=== PATIENT | male | born 1960 | race Caucasian/White ===

== ENCOUNTER 2017-08-15 15:37 | Inpatient (IN) | payer OTHER ==
[~2017-08-15] VITALS: Ht 180.3 cm; Wt 120.5 kg
[~2017-08-15 15:37] MED LIST: AMBI10TA PO; CART240C4 PO; CYCL-36 PO; DYAZ37.52 PO; FURO20TA PO; LISI-363 PO; LORA10TA PO; LORTA5 PO; LOSA100T PO; MELO15TA2 PO; METO100T PO; PERC5TAB12 PO; RIVA20 PO; SIMV20 PO; TAB-TAB PO; TIMO0.5S4 EACH EYE
--- NOTE | 2017-08-15 15:47 | PD ---
HPI Chief Complaint: headache Time Seen by Provider: 15:47 Travel History International Travel<30 days: No Contact w/Intl Traveler<30days: No Traveled to known affect area: No History of Present Illness HPI 57-year-old male came to the emergency room with history of headache and neck pain that started last night. He was brought in by EMS. His blood pressure as per EMS stated more than 200 and upon arrival was 225 systolic. Patient describes the pain bitemporal going to the back of his head and into the neck. No history of fever or chills. No history of photophobia. No history of neck stiffness. He seems uncomfortable. No history of head trauma or syncopal episode. Patient is on medications for hypertension and has been compliant with them as per him. No history of chest pain or blurred vision. PFSH Past Medical History Narrative Medical List of his past medical, surgical, social and family history was reviewed from the nursing note. Hx Anticoagulant Therapy: Yes Arthritis: Yes Asthma: Yes ( A CHILD) Atrial Fibrillation: Yes Blood Disorders: No Heart Rhythm Problems: Yes (atrial fibrillation) Cancer: No Cardiac Catheterization: Yes Cardiovascular Problems: Yes (A FIB, OPEN HEART, HTN, PACEMAKER, MAZE ) High Cholesterol: Yes Chest Pain: No Diabetes: No Diminished Hearing: No Endocrine: No Gastrointestinal Disorders: Yes GERD: Yes Glaucoma: No Genitourinary: No Headaches: Yes (sinus) Hepatitis: No Hiatal Hernia: No Hypertension: Yes Immune Disorder: No Musculoskeletal: Yes Neurologic: Yes Psychiatric: No Reproductive: No Respiratory: Yes (SLEEP APNEA) Integumentary: Yes Immunizations Current: Yes Pancreatitis: Yes Sleep Apnea: Yes Thyroid Disease: No Past Surgical History Abdominal Surgery: Yes (CASS) Body Medical Devices: PACEMAKER Cardiac Surgery: Yes (CABG,VALVE REPAIR,PACEMAKER,ABLATION) Cholecystectomy: Yes Coronary Artery Bypass Graft: Yes (NOV 2008) Pacemaker: Yes (BIOTRONIK ([phone]); CYCLOS DR-REF #[id number]; SN #[id number]) Thoracic Surgery: Yes (PM) Valve Replacement: Yes (REPAIR 11/2007) Other Surgery: Yes (carpal tunnel) Social History Alcohol Use: Yes (occ) Tobacco Use: No Substance Use: No Allergies-Medications (Allergen,Severity, Reaction): Coded Allergies: No Known Allergies (Verified , 06/20/16) Comments No known drug allergies. Reported Meds & Prescriptions Reported Meds & Active Scripts Active Reported Ambien (Zolpidem Tartrate) 10 Mg Tab 10 Mg PO HS PRN Triamterene-Hydrochlorothiazide 37.5-25 Mg Cap 1 Cap PO DAILY Simvastatin 20 Mg Tab 20 Mg PO DAILY Xarelto (Rivaroxaban) 20 Mg Tab 20 Mg PO DAILY Metoprolol Tartrate 100 Mg Tab 100 Mg PO BID Multiple Vitamin 1 Tab 1 Tab PO DAILY Losartan (Losartan Potassium) 100 Mg Tab 100 Mg PO DAILY Claritin (Loratadine) 10 Mg Cap 10 Mg PO DAILY Lisinopril 20 Mg Tab 20 Mg PO BID Lasix (Furosemide) 20 Mg Tab 20 Mg PO DAILY Cartia Xt (Diltiazem ER 24 HR) 120 Mg Caper 240 Mg PO DAILY Flexeril (Cyclobenzaprine HCl) 10 Mg Tab 10 Mg PO TID Narrative Medication List of his home medications reviewed from the nursing note. Review of Systems Except as stated in HPI: all other systems reviewed are Neg Physical Exam Narrative GENERAL: Awake, alert, obese, moderate distress SKIN: Focused skin assessment warm/dry. HEAD: Atraumatic. Normocephalic. EYES: Pupils equal and round. No scleral icterus. No injection or drainage. ENT: No nasal bleeding or discharge. Mucous membranes pink and moist. NECK: Trachea midline. No JVD. Neck is supple, no signs of meningismus CARDIOVASCULAR: Regular rate and rhythm. No murmur appreciated. RESPIRATORY: No accessory muscle use. Clear to auscultation. Breath sounds equal bilaterally. GASTROINTESTINAL: Abdomen soft, non-tender, nondistended. Hepatic and splenic margins not palpable. MUSCULOSKELETAL: No obvious deformities. No clubbing. No cyanosis. No edema. NEUROLOGICAL: Awake and alert. No obvious cranial nerve deficits. Motor grossly within normal limits. Normal speech. PSYCHIATRIC: Appropriate mood and affect; insight and judgment normal. Data Data Last Documented VS Orders Orders Electrocardiogram (08/15/17 15:55) Basic Metabolic Panel (Bmp) (08/15/17 15:55) Ckmb (Isoenzyme) Profile (08/15/17 15:55) Complete Blood Count With Diff (08/15/17 15:55) Magnesium (Mg) (08/15/17 15:55) Prothrombin Time / Inr (Pt) (08/15/17 15:55) Act Partial Throm Time (Ptt) (08/15/17 15:55) Troponin I (08/15/17 15:55) Chest, Single Ap (08/15/17 15:55) Ecg Monitoring (08/15/17 15:55) Bilateral Bp Monitoring (08/15/17 15:55) Iv Access Insert/Monitor (08/15/17 15:55) Oximetry (08/15/17 15:55) Oxygen Administration (08/15/17 15:55) Sodium Chloride 0.9% Flush (Ns Flush) (08/15/17 16:00) Ct Brain W/O Iv Contrast(Rout) (08/15/17 ) Clonidine (Catapres) (08/15/17 16:00) Nicardipine Inj (Cardene Inj) (08/15/17 16:00) Ondansetron Inj (Zofran Inj) (08/15/17 16:00) Potassium Chloride (Kcl) (08/15/17 18:15) Admit Order (Ed Use Only) (08/15/17 18:20) Labs Laboratory Tests Test 08/15/17 16:50 White Blood Count 8.9 TH/MM3 Red Blood Count 5.34 MIL/MM3 Hemoglobin 16.6 GM/DL Hematocrit 49.2 % Mean Corpuscular Volume 92.1 FL Mean Corpuscular Hemoglobin 31.0 PG Mean Corpuscular Hemoglobin Concent 33.7 % Red Cell Distribution Width 13.7 % Platelet Count 164 TH/MM3 Mean Platelet Volume 7.6 FL Neutrophils (%) (Auto) 83.6 % Lymphocytes (%) (Auto) 9.9 % Monocytes (%) (Auto) 4.9 % Eosinophils (%) (Auto) 1.0 % Basophils (%) (Auto) 0.6 % Neutrophils # (Auto) 7.5 TH/MM3 Lymphocytes # (Auto) 0.9 TH/MM3 Monocytes # (Auto) 0.4 TH/MM3 Eosinophils # (Auto) 0.1 TH/MM3 Basophils # (Auto) 0.1 TH/MM3 CBC Comment DIFF FINAL Differential Comment Prothrombin Time 11.8 SEC Prothromb Time International Ratio 1.1 RATIO Activated Partial Thromboplast Time 30.6 SEC Blood Urea Nitrogen 18 MG/DL Creatinine 0.98 MG/DL Random Glucose 116 MG/DL Calcium Level 9.4 MG/DL Magnesium Level 2.3 MG/DL Sodium Level 136 MEQ/L Potassium Level 3.3 MEQ/L Chloride Level 99 MEQ/L Carbon Dioxide Level 31.3 MEQ/L Anion Gap 6 MEQ/L Estimat Glomerular Filtration Rate 79 ML/MIN Total Creatine Kinase 99 U/L Troponin I LESS THAN 0.02 NG/ML MDM Medical Decision Making Medical Screen Exam Complete: Yes Emergency Medical Condition: Yes Medical Record Reviewed: Yes Interpretation(s) Twelve-lead EKG was reviewed by me. Atrial paced rhythm, first-degree AV block , normal axis. Heart rate of 60 bpm. Differential Diagnosis Hypertensive emergency, intracranial bleed, hypertensive crisis Narrative Course 5:[address] scan of the head is negative for any intracranial bleed. Awaiting for blood test result. Patient was given a dose of clonidine by mouth and was started on Cardene drip. He will need to be admitted. 6:11 PM blood test results of back and within acceptable limits. Blood pressure currently is 156. He continues to be on the Cardene drip. Patient should get admitted. Awaiting for the hospitalist to call back. Critical Care Narrative Aggregate critical care time was 45 minutes. Time to perform other separately billable procedures was not included in the critical care time. My time did not include minutes spent treating any other patients simultaneously or on activities that did not directly contribute to the patient's treatment. The services I provided to this patient were to treat and/or prevent clinically significant deterioration that could result in: Hypertensive emergency, headache I provided critical care services requiring my management, as noted below: Chart data review, documentation time, medication orders and management, vital sign assessments/reviewing monitor data, ordering and reviewing lab tests, ordering and interpreting/reviewing x-rays and diagnostic studies, care of the patient and discussion of the patient with the admitting physicians. Procedures EKG Prior to Arrival: No Diagnosis Primary Impression: Hypertensive emergency Additional Impression: Headache Qualified Codes: R51 - Headache Admitting Information Admitting Physician Requests: Admit Scripts Clonidine (Catapres) 0.2 Mg Tab 0.2 MG PO Q6HR for SBP ABOVE 160, #30 TAB 0 Refills Prov: Gallo Jimenez DO 08/19/17 Valeria Cid MD Aug 15, 2017 15:47
[2017-08-15 15:53] VITALS: BP 223/105; PULSE 60; RESP 11; TEMP 97.6
[2017-08-15] MEDS ORDERED: cloNIDine HCL 0.1 MG TAB PO ONE (16:00)
[2017-08-15] MEDS ORDERED: niCARdipine INJ 25 MG in SODIUM CHLOR 0.9% 250 ML INJ 240 ML IV PRN (16:00)
[2017-08-15] MEDS ORDERED: ONDANSETRON HCL 4 MG/2 ML VIAL IV PUSH ONE (16:00)
[2017-08-15] MEDS ORDERED: SODIUM CHLORIDE 0.9% FLUSH 10 ML FLUSH IVF PRN (16:00)
--- NOTE | 2017-08-15 16:35 | RADRPT ---
EXAM DATE/TIME: 08/15/2017 15:57 [facility] COMPARISON: CHEST SINGLE AP, June 20, 2016, 20:48. INDICATIONS : Lightheaded and dizzy with a headache. MEDICAL HISTORY : Hypertension. Gastroesophageal reflux disease. Atrial fibrillation. Asthma. SURGICAL HISTORY : Pacemaker. CABG Cholecystectomy.Valve repair. Ablation. ENCOUNTER: Initial ACUITY: 1 day PAIN SCORE: 0/10 LOCATION: Bilateral chest FINDINGS: A single AP portable erect view of the chest was obtained. The study is more Midinspiratory with mild crowding of the lung vasculature. There are no confluent infiltrates or effusions. The patient is st atus post median sternotomy and there is artificial heart valve again noted. The left subclavian gaviria svenous pacer remains in place. The bony thorax is intact. CONCLUSION: Midinspiratory exam with no acute cardiopulmonary change. Marin Ryan MD on August 15, 2017 at 16:32 Board Certified Radiologist. This report was verified electronically.
[2017-08-15] MEDS ORDERED: MELO-1 PO (16:44)
[2017-08-15] MEDS ORDERED: TRIA37.53 PO (16:44)
[2017-08-15] MEDS ORDERED: AMBI10TA PO (16:44)
[2017-08-15] MEDS ORDERED: LISI-515 PO (16:44)
[2017-08-15] MEDS ORDERED: FURO1TAB62 PO (16:44)
[2017-08-15] MEDS ORDERED: CART120C PO (16:44)
[2017-08-15] MEDS ORDERED: CLAR10CA3 PO (16:44)
[2017-08-15] MEDS ORDERED: MULTTAB67 PO (16:44)
[2017-08-15] MEDS ORDERED: XARE20TA PO (16:44)
[2017-08-15] MEDS ORDERED: METO100T PO (16:44)
[2017-08-15] MEDS ORDERED: CYCL1TAB29 PO (16:44)
[2017-08-15] MEDS ORDERED: LOSA100T PO (16:44)
[2017-08-15] MEDS ORDERED: SIMV20TA PO (16:44)
--- NOTE | 2017-08-15 16:55 | RADRPT ---
EXAM DATE/TIME: 08/15/2017 16:21 [facility] COMPARISON: CT BRAIN W/O CONTRAST, June 13, 2016, 5:02. INDICATIONS : Cephalgia. RADIATION DOSE: 56.35 CTDIvol (mGy) MEDICAL HISTORY : Cardiovascular disease. Hypertension. SURGICAL HISTORY : CABG ENCOUNTER: Initial ACUITY: 1 day PAIN SCALE: 5/10 LOCATION: Bilateral cranial TECHNIQUE: Multiple contiguous axial images were obtained of the head. Using automated exposure control and adj ustment of the mA and/or kV according to patient size, radiation dose was kept as low as reasonably a chievable to obtain optimal diagnostic quality images. DICOM format image data is available electro nically for review and comparison. FINDINGS: CEREBRUM: The ventricles are normal for age. No evidence of midline shift, mass lesion, hemorrhage or acute in farction. No extra-axial fluid collections are seen. POSTERIOR FOSSA: The cerebellum and brainstem are intact. The 4th ventricle is midline. The cerebellopontine angle i s unremarkable. EXTRACRANIAL: The visualized portion of the orbits is intact. SKULL: The calvaria is intact. No evidence of skull fracture. CONCLUSION: Negative noncontrast CT Marin Ryan MD on August 15, 2017 at 16:52 Board Certified Radiologist. This report was verified electronically.
[2017-08-15 17:31] VITALS: BP 167/86; PULSE 60; RESP 15; O2SAT 95
[2017-08-15 18:00] LABS: AUTOMATED NEUTROPHIL # 7.5 TH/MM3 (1.8-7.7); BASOPHIL # 0.1 TH/MM3 (0-0.2); BASOPHIL % 0.6 % (0.0-2.0); EOSINOPHIL # 0.1 TH/MM3 (0-0.4); HEMATOCRIT 49.2 % (39.0-51.0); HEMO FLAGS DIFF FINAL; LYMPH % 9.9 % (9.0-44.0); LYMPHOCYTE # 0.9 TH/MM3 (1.0-4.8); MEAN CELL VOLUME 92.1 FL (80.0-100.0); MEAN CORPUSCULAR HGB CONC 33.7 % (32.0-36.0); MONO % 4.9 % (0.0-8.0); NEUT % 83.6 % (16.0-70.0); PLATELET COUNT 164 TH/MM3 (150-450); RED BLOOD COUNT 5.34 MIL/MM3 (4.50-5.90); RED CELL DISTRIBUTION WIDTH 13.7 % (11.6-17.2); WHITE BLOOD COUNT 8.9 TH/MM3 (4.0-11.0)
[2017-08-15 18:05] LABS: APTT (PATIENT) 30.6 SEC (24.3-30.1); INTERNATIONAL NORMALIZED RATIO 1.1 RATIO; PROTHROMBIN TIME - PATIENT 11.8 SEC (9.8-11.6)
[2017-08-15 18:06] LABS: ANION GAP 6 MEQ/L (5-15); BICARBONATE 31.3 MEQ/L (21.0-32.0); BLOOD UREA NITROGEN 18 MG/DL (7-18); CHLORIDE 99 MEQ/L (98-107); GLOMERULAR FILTRATION RATE 79 ML/MIN (>89); MAGNESIUM 2.3 MG/DL (1.5-2.5); POTASSIUM 3.3 MEQ/L (3.5-5.1); SODIUM (NA) 136 MEQ/L (136-145)
[2017-08-15 18:08] LABS: CREATINE KINASE 99 U/L (39-308)
[2017-08-15] MEDS ORDERED: POTASSIUM CHLORIDE 20 MEQ CONTROLLED RELEASE TAB PO ONE (18:15)
[2017-08-15] MEDS ORDERED: SODIUM CHLORIDE 0.9% FLUSH 10 ML FLUSH IV FLUSH PRN (18:45)
[2017-08-15] MEDS ORDERED: ACETAMINOPHEN 325 MG TAB PO ONE (18:45)
[2017-08-15 18:50] VITALS: BP 143/74; PULSE 61; RESP 20; O2SAT 95
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
[2017-08-15 21:00] VITALS: BP 169/85; PULSE 60; RESP 24; TEMP 97.9; O2SAT 94
[2017-08-15] MEDS: SODIUM CHLORIDE 0.9% FLUSH 10 ML FLUSH IV FLUSH SCH (21:00)
[2017-08-15] MEDS ORDERED: CHLORHEXIDINE GLUCONATE 2 % 1 PACK (2 CLOTHS)(extra cloths) TOPICAL PRN (21:00)
[2017-08-15 22:00] VITALS: BP 176/92; PULSE 60; RESP 16; O2SAT 97
[2017-08-15] MEDS: LISINOPRIL 20 MG TAB PO SCH (22:51)
[2017-08-15] MEDS: ACETAMINOPHEN/HYDROcodone 325 MG/7.5 MG TAB PO PRN (22:51)
[2017-08-15] MEDS: PRAVASTATIN SOD 40 MG TAB PO SCH (22:51)
[2017-08-15] MEDS: METOPROLOL TARTRATE 100 MG TAB PO SCH (22:51)
[2017-08-15 23:00] VITALS: BP 181/94; PULSE 60; RESP 18; O2SAT 97
[2017-08-15] MEDS: ZOLPIDEM TARTRATE 10 MG TAB PO PRN (23:18)
[2017-08-16] VITALS (16 sets, daily range): BP systolic 110–155; BP diastolic 59–94; PULSE 60–67; RESP 14–24; TEMP 97.5–98; O2SAT 94–97
[2017-08-16] MEDS: CHLORHEXIDINE GLUCONATE 2 % 1 PACK (2 CLOTHS)(taper/protocol) TOPICAL SCH (04:00)
[2017-08-16 05:35] LABS: BASOPHIL % 0.6 % (0.0-2.0); EOSINOPHIL # 0.1 TH/MM3 (0-0.4); EOSINOPHIL % 1.5 % (0.0-4.0); HEMATOCRIT 43.9 % (39.0-51.0); HEMO FLAGS DIFF FINAL; LYMPH % 15.6 % (9.0-44.0); LYMPHOCYTE # 1.3 TH/MM3 (1.0-4.8); MEAN CELL VOLUME 91.9 FL (80.0-100.0); MEAN CORPUSCULAR HEMOGLOBIN 31.6 PG (27.0-34.0); MEAN CORPUSCULAR HGB CONC 34.3 % (32.0-36.0); MONO % 11.5 % (0.0-8.0); NEUT % 70.8 % (16.0-70.0); PLATELET COUNT 152 TH/MM3 (150-450); RED BLOOD COUNT 4.77 MIL/MM3 (4.50-5.90); RED CELL DISTRIBUTION WIDTH 13.7 % (11.6-17.2); WHITE BLOOD COUNT 8.5 TH/MM3 (4.0-11.0)
[2017-08-16 05:44] LABS: BICARBONATE 31.6 MEQ/L (21.0-32.0); POTASSIUM 3.1 MEQ/L (3.5-5.1)
--- NOTE | 2017-08-16 08:52 | HHI.PR ---
Subjective Remarks feels well. no headache. sleepy due to lack of sleep overnight. Objective Vitals heartt reg lung cta abd s/nt ext no edema Vital Signs Date Time Temp Pulse Resp B/P (MAP) Pulse Ox O2 Delivery O2 Flow Rate FiO2 08/16/17 06:00 60 08/16/17 04:00 98.0 60 16 154/79 (104) 95 08/16/17 04:00 60 08/16/17 03:00 60 15 116/59 (78) 96 08/16/17 02:00 67 24 110/94 (99) 95 08/16/17 02:00 67 08/16/17 01:00 64 18 141/77 (98) 94 08/16/17 00:08 60 150/72 08/16/17 00:00 97.9 60 17 150/72 (98) 97 08/16/17 00:00 60 08/15/17 23:00 60 18 181/94 (123) 97 08/15/17 22:00 60 16 176/92 (120) 97 08/15/17 22:00 60 08/15/17 21:00 97.9 60 24 169/85 (113) 94 08/15/17 21:00 60 169/85 08/15/17 20:30 197/100 08/15/17 20:20 08/15/17 18:50 61 20 143/74 (97) 95 Room Air 08/15/17 17:31 60 15 167/86 (113) 95 Room Air 08/15/17 17:14 60 201/90 08/15/17 16:00 94 Room Air 08/15/17 15:53 97.6 60 11 223/105 (144) Result Diagram: 08/16/17 0456 08/16/17 0456 A/P Problem List: (1) Hypertensive urgency ICD Codes: I16.0 - Hypertensive urgency Status: Acute Plan: 1. htn urgency. severe headache. 2. cad. cabg x 1 3. hx afib/flutter. s/p maze,ablation. pm 4. [place] 5. hypokalemia. related to lasix ....icu monitoring ....cardene gtt off and bp much improved ....resume his regular home bp medications and provide prn po/iv coverage for breakthrough..adjust home regimen as needed. try to avoid resuming the cardene gtt .... 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 -replace kcl. -If stable might be able to go home in AM (2) Headache ICD Codes: R51 - Headache Status: Acute (3) Atrial flutter ICD Codes: I48.92 - Unspecified atrial flutter Status: Resolved (4) CAD (coronary artery disease) ICD Codes: I25.10 - Atherosclerotic heart disease of [place] coronary artery without angina pectoris Status: Chronic (5) LORETO (obstructive sleep apnea) ICD Codes: G47.33 - Obstructive sleep apnea (adult) (pediatric) Status: Chronic Problem Qualifiers (1) Headache: Qualified Codes: R51 - Headache Henri Cruz MD Aug 16, 2017 08:52
[2017-08-16] MEDS ORDERED: cloNIDine HCL 0.2 MG TAB PO PRN (09:00)
[2017-08-16] MEDS ORDERED: hydrALAZINE HCL 20 MG/ML VIAL IV PUSH PRN (09:00)
[2017-08-16] MEDS: LISINOPRIL 20 MG TAB PO SCH ×2 (09:14→20:23)
[2017-08-16] MEDS: LORATADINE 10 MG TAB PO SCH (09:14)
[2017-08-16] MEDS: TRIAMTERENE/HCTZ 37.5 MG/25 MG CAP PO SCH (09:14)
[2017-08-16] MEDS: RIVAROXABAN 20 MG TAB PO SCH (09:15)
[2017-08-16] MEDS: MULTIVITAMIN TAB PO SCH (09:15)
[2017-08-16] MEDS: SODIUM CHLORIDE 0.9% FLUSH 10 ML FLUSH IV FLUSH SCH ×2 (09:15→20:23)
[2017-08-16] MEDS: CYCLOBENZAPRINE HCL 10 MG TAB PO SCH ×3 (09:15→17:43)
[2017-08-16] MEDS: POTASSIUM CHLORIDE 20 MEQ CONTROLLED RELEASE TAB PO SCH ×2 (09:15→12:31)
[2017-08-16] MEDS: LOSARTAN 50 MG TAB PO SCH (09:15)
[2017-08-16] MEDS: METOPROLOL TARTRATE 100 MG TAB PO SCH ×2 (09:15→20:23)
[2017-08-16] MEDS: DILTIAZEM-CD 240 MG CAP ER PO SCH (10:21)
--- NOTE | 2017-08-16 13:56 | EKG ---
Date Performed: 08/15/2017 Time Performed: 16:09:26 PTAGE: 57 years EKG: ELECTRONIC ATRIAL PACEMAKER ABNORMAL RHYTHM ECG PREVIOUS TRACING : 06/10/2016 05.01 Tracing is otherwise within normal limits. Since previous t racing, previous tracing showed ectopic atrial rhythm. This tracing shows paced atrial rhythm. DOCTOR: Henri Barth Interpretating Date/Time 08/16/2017 13:55:26
[2017-08-16] MEDS ORDERED: MELOXICAM 15 MG TAB PO ONE (15:15)
[2017-08-16] MEDS: PRAVASTATIN SOD 40 MG TAB PO SCH (20:23)
[2017-08-16] MEDS: ACETAMINOPHEN/HYDROcodone 325 MG/7.5 MG TAB PO PRN (23:54)
[2017-08-16] MEDS: ZOLPIDEM TARTRATE 10 MG TAB PO PRN (23:59)
[2017-08-17] VITALS (7 sets, daily range): BP systolic 115–195; BP diastolic 58–99; PULSE 60–61; RESP 20–21; TEMP 97.8–98.2; O2SAT 94–96
[2017-08-17] MEDS: CHLORHEXIDINE GLUCONATE 2 % 1 PACK (2 CLOTHS)(taper/protocol) TOPICAL SCH (04:00)
[2017-08-17 07:55] LABS: BICARBONATE 30.7 MEQ/L (21.0-32.0); POTASSIUM 3.4 MEQ/L (3.5-5.1)
[2017-08-17] MEDS: LISINOPRIL 20 MG TAB PO SCH ×2 (09:41→21:15)
[2017-08-17] MEDS: DILTIAZEM-CD 240 MG CAP ER PO SCH ×2 (09:41→21:22)
[2017-08-17] MEDS: LOSARTAN 50 MG TAB PO SCH (09:41)
[2017-08-17] MEDS: SODIUM CHLORIDE 0.9% FLUSH 10 ML FLUSH IV FLUSH SCH ×2 (09:41→21:23)
[2017-08-17] MEDS: CYCLOBENZAPRINE HCL 10 MG TAB PO SCH ×3 (09:41→17:21)
[2017-08-17] MEDS: MULTIVITAMIN TAB PO SCH (09:41)
[2017-08-17] MEDS: TRIAMTERENE/HCTZ 37.5 MG/25 MG CAP PO SCH (09:41)
[2017-08-17] MEDS: RIVAROXABAN 20 MG TAB PO SCH (09:41)
[2017-08-17] MEDS: LORATADINE 10 MG TAB PO SCH (09:41)
[2017-08-17] MEDS: MELOXICAM 15 MG TAB PO SCH (09:41)
[2017-08-17] MEDS: METOPROLOL TARTRATE 100 MG TAB PO SCH ×2 (09:41→21:15)
[2017-08-17] MEDS ORDERED: IBUPROFEN 400 MG TAB PO ONE (15:00)
[2017-08-17] MEDS ORDERED: POTASSIUM CHLORIDE 20 MEQ CONTROLLED RELEASE TAB PO ONE (15:30)
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
[2017-08-17] MEDS ORDERED: IOHEXOL 350 MG/ML 10 ML VIAL (for RAD DIAG) IVCONTRAST ONE (18:07)
--- NOTE | 2017-08-17 19:13 | RADRPT ---
EXAM DATE/TIME: 08/17/2017 17:58 [facility] COMPARISON: CT PULMONARY ANGIOGRAM, June 20, 2016, 23:27. INDICATIONS : Accelerated hypertension, evaluate for renal stenosis. IV CONTRAST: 96 cc Omnipaque 350 (iohexol) IV ORAL CONTRAST: No oral contrast ingested. RADIATION DOSE: 12.20 CTDIvol (mGy) MEDICAL HISTORY : Hypertension. Cardiovascular disease SURGICAL HISTORY : CABG Pacer, valve replacement ENCOUNTER: Initial ACUITY: 1 day PAIN SCALE: 0/10 LOCATION: abdomen TECHNIQUE: Volumetric scanning was performed using a multi-row detector CT scanner. The data was post processed with a variety of visualization algorithms including full volume maximum intensity projection, multi -planar sliding thin slab reformation, curved planar reformation, and surface rendering techniques. Using automated exposure control and adjustment of the mA and/or kV according to patient size, radiat ion dose was kept as low as reasonably achievable to obtain optimal diagnostic quality images. DICOM format image data is available electronically for review and comparison. FINDINGS: ABDOMINAL AORTA: The lumen is smooth without significant narrowing or aneurismal dilation. The proximal celiac and sup erior mesenteric arteries are patent and normal in diameter. There is minimal stenosis just distal t o the origin of the right renal artery lumen compromise approximately 50%. The left renal artery is widely patent. Complex cystic mass upper pole left kidney. BIFURCATION: Normal. RIGHT PELVIS: The right common iliac, internal iliac and external iliac vessels are patent without luminal irregula rity. LEFT PELVIS: The left common iliac, internal iliac and external iliac vessels are patent and without luminal irreg ularity. CONCLUSION: The right artery is abnormal the stenosis just distal to the origin. Given its appearance this could be in small bowel but the minimal poststenotic dilatation. Options at this point would be to study with conventional angiography were checked for high circulating renins. The small 2 centimeters cyst left kidney does contain minimal internal architecture and is incomplete ly evaluated on today's exam. Either renal protocol CT scan or MRI with contrast using the renal pro tocol would be of benefit. This is slightly larger when compared to 06/20/16. Sampson Emery MD FACR on August 17, 2017 at 19:05 Board Certified Radiologist. This report was verified electronically.
[2017-08-17] MEDS: PRAVASTATIN SOD 40 MG TAB PO SCH (21:22)
[2017-08-17] MEDS: ZOLPIDEM TARTRATE 10 MG TAB PO PRN (23:20)
[2017-08-18] VITALS (8 sets, daily range): BP systolic 133–162; BP diastolic 75–91; PULSE 60–61; RESP 18–19; TEMP 97.5–98.2; O2SAT 95–99
[2017-08-18] MEDS: CHLORHEXIDINE GLUCONATE 2 % 1 PACK (2 CLOTHS)(taper/protocol) TOPICAL SCH (03:09)
[2017-08-18 08:49] LABS: BICARBONATE 33.3 MEQ/L (21.0-32.0); POTASSIUM 3.7 MEQ/L (3.5-5.1)
[2017-08-18] MEDS: DILTIAZEM-CD 240 MG CAP ER PO SCH (09:00)
[2017-08-18] MEDS: CYCLOBENZAPRINE HCL 10 MG TAB PO SCH ×3 (09:14→17:01)
[2017-08-18] MEDS: TRIAMTERENE/HCTZ 37.5 MG/25 MG CAP PO SCH (09:14)
[2017-08-18] MEDS: MELOXICAM 15 MG TAB PO SCH (09:14)
[2017-08-18] MEDS: METOPROLOL TARTRATE 100 MG TAB PO SCH ×2 (09:14→21:09)
[2017-08-18] MEDS: LORATADINE 10 MG TAB PO SCH (09:14)
[2017-08-18] MEDS: MULTIVITAMIN TAB PO SCH (09:14)
[2017-08-18] MEDS: LISINOPRIL 20 MG TAB PO SCH ×2 (09:14→21:09)
[2017-08-18] MEDS: LOSARTAN 50 MG TAB PO SCH (09:14)
[2017-08-18] MEDS: SODIUM CHLORIDE 0.9% FLUSH 10 ML FLUSH IV FLUSH SCH ×2 (09:16→21:09)
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
[2017-08-18] MEDS ORDERED: DIATRIZOATE MEGLUM/DIATRIZOATE SOD 9 ML CUP PO ONE (15:30)
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
[2017-08-18] MEDS ORDERED: IOHEXOL 350 MG/ML 10 ML VIAL (for RAD DIAG) IVCONTRAST ONE (19:03)
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
[2017-08-18] MEDS: RIVAROXABAN 20 MG TAB PO SCH (20:00)
[2017-08-18] MEDS ORDERED: DILTIAZEM-CD 240 MG CAP ER PO SCH (20:00)
[2017-08-18] MEDS: PRAVASTATIN SOD 40 MG TAB PO SCH (21:08)
[2017-08-18] MEDS: ZOLPIDEM TARTRATE 10 MG TAB PO PRN (23:02)
[2017-08-19] VITALS: BP 150/70; PULSE 60; RESP 16; TEMP 98; O2SAT 96
[2017-08-19] MEDS: CHLORHEXIDINE GLUCONATE 2 % 1 PACK (2 CLOTHS)(taper/protocol) TOPICAL SCH (03:09)
[2017-08-19 04:00] VITALS: BP 116/62; PULSE 60; RESP 16; TEMP 98; O2SAT 96
[2017-08-19 07:59] VITALS: PULSE 60
[2017-08-19 08:00] VITALS: BP 151/90; PULSE 60; RESP 18; TEMP 98; O2SAT 97
[2017-08-19 09:01] LABS: AUTOMATED NEUTROPHIL # 3.4 TH/MM3 (1.8-7.7); BASOPHIL # 0.1 TH/MM3 (0-0.2); EOSINOPHIL # 0.3 TH/MM3 (0-0.4); EOSINOPHIL % 5.1 % (0.0-4.0); HEMATOCRIT 43.1 % (39.0-51.0); HEMO FLAGS DIFF FINAL; LYMPH % 19.6 % (9.0-44.0); MEAN CELL VOLUME 91.7 FL (80.0-100.0); MEAN CORPUSCULAR HEMOGLOBIN 31.5 PG (27.0-34.0); MEAN CORPUSCULAR HGB CONC 34.4 % (32.0-36.0); MONO % 10.2 % (0.0-8.0); NEUT % 64.1 % (16.0-70.0); PLATELET COUNT 148 TH/MM3 (150-450); RED CELL DISTRIBUTION WIDTH 13.9 % (11.6-17.2); WHITE BLOOD COUNT 5.2 TH/MM3 (4.0-11.0)
[2017-08-19] MEDS: RIVAROXABAN 20 MG TAB PO SCH (09:03)
[2017-08-19] MEDS: MULTIVITAMIN TAB PO SCH (09:03)
[2017-08-19] MEDS: MELOXICAM 15 MG TAB PO SCH (09:03)
[2017-08-19] MEDS: LORATADINE 10 MG TAB PO SCH (09:04)
[2017-08-19] MEDS: LOSARTAN 50 MG TAB PO SCH (09:04)
[2017-08-19] MEDS: LISINOPRIL 20 MG TAB PO SCH (09:04)
[2017-08-19] MEDS: CYCLOBENZAPRINE HCL 10 MG TAB PO SCH ×2 (09:05→12:54)
[2017-08-19] MEDS: METOPROLOL TARTRATE 100 MG TAB PO SCH (09:05)
[2017-08-19] MEDS: SODIUM CHLORIDE 0.9% FLUSH 10 ML FLUSH IV FLUSH SCH (10:02)
[2017-08-19] MEDS: TRIAMTERENE/HCTZ 37.5 MG/25 MG CAP PO SCH (10:02)
[2017-08-19 10:47] LABS: BICARBONATE 30.9 MEQ/L (21.0-32.0); MAGNESIUM 2.4 MG/DL (1.5-2.5); POTASSIUM 3.5 MEQ/L (3.5-5.1)
--- NOTE | 2017-08-19 11:01 | PD.RAD ---
Post Procedure Progress Note Pre Procedure Diagnosis: (1) Liver mass, right lobe Post Procedure Diagnosis: (1) Liver mass, right lobe Procedure Date: Aug 19, 2017 Supervising Radiologist: Cong Emery Plan of Activity Patient Condition: Good Additional Comments: PT evaluated with CT and ultrasound in an attempt to biopsy a 1.8cm mass in segment 8 right lobe of the liver. Mass could not be identified with either modality. No biopsy preformed. Full dictated report to follow See PACS Report for procedural detail/treatment Cong Emery MD Aug 19, 2017 11:01
[2017-08-19 12:00] VITALS: BP 184/97; PULSE 60; RESP 18; TEMP 98.5; O2SAT 97
--- NOTE | 2017-08-19 12:56 | HHI.DCPOC ---
Discharge Care Plan Diagnosis: (1) Hypertensive urgency (2) CAD (coronary artery disease) (3) Atrial fibrillation Goals to Promote Your Health * To prevent worsening of your condition and complications * To maintain your health at the optimal level Directions to Meet Your Goals Take your medications as prescribed Follow your dietary instruction Follow activity as directed Keep your appointments as scheduled Take your immunizations and boosters as scheduled If your symptoms worsen call your PCP, if no PCP go to Urgent Care Center or Emergency Room Smoking is Dangerous to Your Health. Avoid second hand smoke Call the 24-hour hour crisis hotline for domestic abuse at Gallo Jimenez DO Aug 19, 2017 12:55
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
--- NOTE | 2017-08-19 13:08 | MB ---
cc: LEXIE FLOWERS MD DATE OF CONSULTATION 08/19/2017 REASON FOR CONSULTATION Bilateral renal cysts, possible renal mass. HISTORY OF PRESENT ILLNESS The patient is a 57-year-old male with a history of hypertension and atrial fibrillation status post ablation and pacemaker who was admitted to the ER after having severe symptomatic high blood pressure. During workup for renal artery stenosis, a CTA was performed and it showed a questionable cyst, possible mass on both of his kidneys. Subsequent CT of the abdomen and pelvis with IV contrast to the kidneys was performed which showed a simple bilateral renal cysts and a small nonobstructing 2 mm stone is his left kidney. Urology was consulted. The patient denies any flank pain, fevers, chills, nausea, or vomiting at this time. Denies any hematuria or dysuria. He did smoke in the past and denies any lower urinary tract symptoms other than getting up twice a night. He has seen Dr. Watson in the past several years ago for low testosterone. Denies any prior history of kidney stones or urinary tract infections. REVIEW OF SYSTEMS See HPI otherwise all systems reviewed and are otherwise negative. PAST MEDICAL HISTORY Significant for: 1. Atrial fibrillation 2. Hypertension 3. Obstructive sleep apnea 4. GERD 5. A. Flutter PAST SURGICAL HISTORY 1. He has had circumcision. 2. CABG x1 with a mitral valve repair 3. Laparoscopic cholecystectomy 4. Cardiac ablation MEDICATIONS Include: 1. Metoprolol 2. Meloxicam 3. Lisinopril 4. Lasix 5. Flexeril 6. Cartia XT 7. Xarelto 8. Ambien 9. Hydrochlorothiazide ALLERGIES Known drug allergies. FAMILY HISTORY Denies urolithiasis or genitourinary malignancies. SOCIAL HISTORY Denies alcohol, tobacco occasional. NO illicit drug use. Currently , recently lost his job. PHYSICAL EXAMINATION VITAL SIGNS: Temperature 98, pulse 60, respiratory rate 18, BP 151/90, sating 97% on room air. GENERAL: He is alert and oriented x3 in no apparent distress, pleasant and cooperative, appearing his stated age. HEAD: Normocephalic, atraumatic. EYES: No scleral icterus. Extraocular muscles intact. NECK: Supple. Trachea is midline. No JVD. SKIN: No ulcers or rashes. Mucous membranes pink and moist. LUNGS: Clear to auscultation bilaterally. No wheezes, rales or rhonchi. HEART: Regular rhythm. No murmurs, gallops, or rubs. ABDOMEN: Soft, nontender, nondistended. Positive bowel sounds. GENITOURINARY: He has no CVA tenderness bilaterally. His penis is circumcised. Testes are bilaterally, normal size and consistency without mass. RECTAL: Exam deferred at this time. EXTREMITIES: Nontender. No clubbing, cyanosis or edema. PSYCH: Normal affect. NEURO: Cranial nerves II-XII are intact. MUSCULOSKELETAL: 5/5 all four extremities. LABORATORY DATA White count 5.2, hemoglobin 14.8, hematocrit 43.1, platelet count 148. Chemistry sodium 140, potassium 3.5, chloride 102, bicarb 50.9, BUN 19, creatinine 1.05. IMAGING STUDIES CT of the abdomen and pelvis with IV contrast, the images were reviewed, agree with radiologist report. The patient has bilateral simple renal cysts, as well as a tubular nonobstructing stone in the left kidney. ASSESSMENT/PLAN 1. The patient is a 57-year-old male with bilateral renal cysts and a small 2 mm nonsustained kidney stone. Plan, these renal cysts are benign. No further urological workup is Indicated. 2. A small acidotic left kidney stone. Recommend conservative management as it is less than 5 mm. From the urology standpoint, it is okay for him to be discharged home. He can follow up as an outpatient. Thank you for this consult. Please call with any questions. MD FACUNDO Hamilton/WILMA /12:48 PM /12:54 PM
[2017-08-19] MEDS ORDERED: CLON.2 PO (13:29)
--- NOTE | 2017-08-19 14:13 | PD.CARD.PN ---
Subjective Subjective Remarks Patient is anxious to go home. No CP or SOB. BP a little more elevated today. (Helen Oh) Subjective Remarks The exam, history, and the medical decision-making described in the above note were completed with the assistance of the mid-level provider. I reviewed and agree with the findings presented. I attest that I had a [id number] encounter with the patient on the same day, and personally performed and documented my assessment and findings in the medical record. (Iliana Lepe MD) Objective Medications Current Medications Medications (Trade) Dose Ordered Sig/Omkar Route Start Time Stop Time Status Last Admin (NS Flush) 2 ml UNSCH PRN IV FLUSH 08/15/17 18:45 (NS Flush) 2 ml BID IV FLUSH 08/15/17 21:00 08/19/17 10:02 Miscellaneous Information Patient in critical care unit? Ass... [id number] .XX 08/15/17 21:00 (Chlorhexidine 2% Cloth) 3 pack DAILY@04 TOPICAL 08/16/17 04:00 08/20/17 04:01 08/16/17 04:00 (Chlorhexidine 2% Cloth) 3 pack UNSCH PRN TOPICAL 08/15/17 21:00 08/20/17 20:50 (Flexeril) 10 mg TID PO 08/16/17 09:00 08/19/17 12:54 (Prinivil) 20 mg BID PO 08/15/17 21:00 08/19/17 09:04 (Claritin) 10 mg DAILY PO 08/16/17 09:00 08/19/17 09:04 (Cozaar) 100 mg DAILY PO 08/16/17 09:00 08/19/17 09:04 (Lopressor) 100 mg BID PO 08/15/17 21:00 08/19/17 09:05 (Dyazide 37.5-25 Mg) 1 cap DAILY PO 08/16/17 09:00 08/19/17 10:02 (Ambien) 10 mg HS PRN PO 08/15/17 21:00 08/18/17 23:02 (Theragran) 1 tab DAILY PO 08/16/17 09:00 08/19/17 09:03 (Pravachol) 40 mg HS PO 08/15/17 21:00 08/18/17 21:08 ([place] 7.5-325 Mg) 1 tab Q4H PRN PO 08/15/17 21:00 08/16/17 23:54 (Apresoline Inj) 10 mg Q2H PRN IV PUSH 08/16/17 09:00 08/19/17 12:56 (Catapres) 0.2 mg Q6H PRN PO 08/16/17 09:00 08/17/17 12:50 (Mobic) 15 mg DAILY PO 08/17/17 09:00 08/19/17 09:03 (Xarelto) 20 mg DAILY PO 08/18/17 20:00 08/19/17 09:03 (Cardizem Cd) 240 mg DAILY@1999 PO 08/18/17 20:00 08/18/17 21:08 Vital Signs / I&O Vital Signs Date Time Temp Pulse Resp B/P (MAP) Pulse Ox O2 Delivery O2 Flow Rate FiO2 08/19/17 12:00 98.5 60 18 184/97 (126) 97 08/19/17 08:00 98.0 60 18 151/90 (110) 97 08/19/17 07:59 60 08/19/17 04:00 98.0 60 16 116/62 (80) 96 08/19/17 00:00 98.0 60 16 150/70 (96) 96 08/18/17 20:00 60 08/18/17 19:00 98.2 60 18 162/90 (114) 08/18/17 16:30 98.2 60 18 157/91 (113) 99 I/O 08/18/17 08/18/17 08/18/17 08/19/17 08/19/17 08/19/17 07:00 15:00 23:00 07:00 15:00 23:00 Intake Total 520 ml 960 ml Output Total 850 ml 450 ml Balance -330 ml 960 ml -450 ml Intake Oral 520 ml 960 ml Output Urine Total 850 ml 450 ml # Voids 3 # Bowel Movements 0 1 Physical Exam GENERAL: obese male SKIN: Warm and dry. HEAD: Normocephalic. EYES: No scleral icterus. No injection or drainage. NECK: Supple, trachea midline. No JVD or lymphadenopathy. CARDIOVASCULAR: Regular rate and rhythm without murmurs, gallops, or rubs. RESPIRATORY: Breath sounds equal bilaterally. No accessory muscle use. GASTROINTESTINAL: Abdomen soft, non-tender, nondistended. MUSCULOSKELETAL: No cyanosis, or edema. BACK: Nontender without obvious deformity. No CVA tenderness. Laboratory Laboratory Tests Test 08/19/17 06:34 White Blood Count 5.2 TH/MM3 Red Blood Count 4.70 MIL/MM3 Hemoglobin 14.8 GM/DL Hematocrit 43.1 % Mean Corpuscular Volume 91.7 FL Mean Corpuscular Hemoglobin 31.5 PG Mean Corpuscular Hemoglobin Concent 34.4 % Red Cell Distribution Width 13.9 % Platelet Count 148 TH/MM3 Mean Platelet Volume 7.6 FL Neutrophils (%) (Auto) 64.1 % Lymphocytes (%) (Auto) 19.6 % Monocytes (%) (Auto) 10.2 % Eosinophils (%) (Auto) 5.1 % Basophils (%) (Auto) 1.0 % Neutrophils # (Auto) 3.4 TH/MM3 Lymphocytes # (Auto) 1.0 TH/MM3 Monocytes # (Auto) 0.5 TH/MM3 Eosinophils # (Auto) 0.3 TH/MM3 Basophils # (Auto) 0.1 TH/MM3 CBC Comment DIFF FINAL Differential Comment Blood Urea Nitrogen 19 MG/DL Creatinine 1.05 MG/DL Random Glucose 89 MG/DL Calcium Level 8.5 MG/DL Magnesium Level 2.4 MG/DL Sodium Level 140 MEQ/L Potassium Level 3.5 MEQ/L Chloride Level 102 MEQ/L Carbon Dioxide Level 30.9 MEQ/L Anion Gap 7 MEQ/L Estimat Glomerular Filtration Rate 73 ML/MIN (Helen Oh) Assessment and Plan Assessment and Plan Hypertensive urgency with history of HTN. Evidence of non-occlusive renal artery stenosis. He admits to recently increased ETOH intake. Has a history of sleep apnea, not currently using CPAP/bipap ASHD Atrial fibrillation on Xarelto PPM HLD DM PLAN: Will continue home antihypertensives. Clonidine PRN added. Pending outpatient renal angiography per IR with possible stenting. Advised to keep BP log twice per day and bring to followup appointment Discussed importance of adhering to heart healthy diet (referenced DASH diet), decreasing alcohol intake and maintaining a regular exercise program. The patient is clear for discharge from a cardiac standpoint. Follow up in 2-3 weeks The patient was seen and evaluated by Dr Lepe who completed face to face encounter and physical exam, and participated in evaluation and management. (Helen Oh) Helen Oh Aug 19, 2017 14:13 Iliana Lepe MD Aug 21, 2017 09:52
== END 2017-08-19 15:11 | disposition home or self-care (01) | DRG 305 ==
LOC: NEPC 15:37 → NEDA 18:21 → HIMN 20:25 → N04A 08-16 21:24
PROVIDERS: ADMIT Hospitalist; ATTEND Hospitalist
DX: I16.0 Hypertensive urgency (principal); E87.2 Acidosis; I25.10 Atherosclerotic heart disease of native coronary artery without angina pectoris; Z95.1 Presence of aortocoronary bypass graft; Z79.02 Long term (current) use of antithrombotics/antiplatelets; I10 Essential (primary) hypertension; Z95.0 Presence of cardiac pacemaker; G47.33 Obstructive sleep apnea (adult) (pediatric); K21.9 Gastro-esophageal reflux disease without esophagitis; E87.6 Hypokalemia; E78.5 Hyperlipidemia, unspecified; E66.9 Obesity, unspecified; Z68.37 Body mass index [BMI] 37.0-37.9, adult; N28.1 Cyst of kidney, acquired; N20.0 Calculus of kidney; R51 Headache; I70.1 Atherosclerosis of renal artery; Z87.891 Personal history of nicotine dependence
CPT/HCPCS: 70450; 71010; 74174; 74177; 80048; 82550; 83735; 84484; 85025; 85610; 85730; 87641; 93005; 96365; 96375; J0360; J2405; J7050; Q9963; Q9967

== ENCOUNTER 2017-08-27 08:31 | Day surgery (SDC) | payer OTHER ==
[2017-08-27] VITALS (10 sets, daily range): BP systolic 145–193; BP diastolic 89–117; PULSE 60; RESP 16–20; TEMP 97.5–97.9; O2SAT 93–98
[~2017-08-27] VITALS: Ht 182.9 cm; Wt 118.2 kg
[~2017-08-27 08:31] MED LIST changes: +CART120C PO; -CART240C4 PO; +CLAR10CA3 PO; +CLON.2 PO; -CYCL-36 PO; +CYCL1TAB29 PO; -DYAZ37.52 PO; +FURO1TAB62 PO; -FURO20TA PO; -LISI-363 PO; +LISI-515 PO; -LORA10TA PO; -LORTA5 PO; -MELO15TA2 PO; +MULTTAB67 PO; -PERC5TAB12 PO; -RIVA20 PO; -SIMV20 PO; +SIMV20TA PO; -TAB-TAB PO; -TIMO0.5S4 EACH EYE; +TRIA37.53 PO; +XARE20TA PO
[2017-08-27] MEDS ORDERED: IODIXANOL 320 MG/ML 50 ML VIAL (for RAD SPEC) I-ARTERIAL ONE (08:32)
[2017-08-27] MEDS ORDERED: MOBI15TA PO (09:01)
[2017-08-27] MEDS ORDERED: MIDAZOLAM HCL 5 MG/5 ML VIAL ONE (09:54)
[2017-08-27] MEDS ORDERED: SODIUM CHLORIDE 0.9% FLUSH 10 ML FLUSH IV FLUSH PRN (10:00)
[2017-08-27] MEDS ORDERED: SODIUM CHLOR 0.9% 1000 ML INJ 1,000 ML IV SCH (10:00)
[2017-08-27] MEDS ORDERED: ceFAZolin 2 GM PREMIX 50 ML ONE (10:56)
--- NOTE | 2017-08-27 11:31 | PD.RAD ---
Post Procedure Progress Note Pre Procedure Diagnosis: (1) RAKESH (renal artery stenosis) (2) High blood pressure Post Procedure Diagnosis: (1) Right renal artery stenosis (2) High blood pressure Procedure Date: Aug 27, 2017 Supervising Radiologist: Star Foster Proceduralist/Assist: Zoila Mendieta, RT(R)(CV), Chin Spence RT(R) Anesthesia: Local, Analgesia, Conscious Sedation Plan of Activity Patient to Unit: ROPU Patient Condition: Good See PACS Report for procedural detail/treatment Vascular-Arterial Procedure Procedure 1 Procedure Site: Right Renal Procedure(s): Angiogram, Stent Placement (6 x 14mm) Access Access Site(s): Right Femoral Artery Closure Site(s): Right vascular closure device (PerClose) Findings: 15mm gradient across central right RAKESH. Stented with 6 x 14mm device with excellent angiographic result. Star Foster MD Aug 27, 2017 11:16
--- NOTE | 2017-08-27 12:48 | RADRPT ---
EXAM DATE/TIME: 08/27/2017 09:47 [facility] COMPARISON: No previous studies available for comparison.q INDICATIONS : Patient presents with right renal stenosis in need of stent placement. MEDICAL HISTORY : HTN CAD Afib/flutter GERD Liver mass HASMUKH SURGICAL HISTORY : Lap kiesha CABG Afib ablation x1 MV repair Maze ENCOUNTER: Initial ACUITY: 2 weeks PAIN SCORE: 0/10 LOCATION: N/A FLUORO TIME: 4.4 minutes IMAGE SERIES: 7 ACCESS SITE: Right Femoral artery SEDATION TIME: 30 minutes CONTRAST: 1.) 75 cc Visipaque (iodixanol) MEDICATION(S): 1.) 3 mg midazolam (Versed) IV 2.) 150 mcg fentanyl (Sublimaze) IV 3.) 3000 units Heparin IV 4.) 2 mg cefazolin (Ancef) IV Intra-procedural antibiotics were given as prescribed above. DEVICE(S): 1.) Right renal artery 6X14MM Express SD stent (balloon expanding) 2.) Right common femoral artery 6FR Perclose PROCEDURE : 1. Ultrasound-guided puncture of the access site. 2. Angiography of the access site prior to closure device. 3. Conscious sedation with continuous EKG and Oximetry monitoring. 4. Percutaneous closure of the access site. 5. Angiography of the right renal artery 6. stenting, right renal artery 7. hemodynamic pressures, right renal artery. The risks, benefits and alternatives to the procedure were explained and verbal and written consent w as obtained. The site was prepped in sterile fashion. Full sterile technique was used, including ca p, mask, sterile gloves and gown and a large sterile sheet. Hand hygiene and 2% chlorhexidine and/or betadine/alcohol prep was utilized per protocol for cutaneous antisepsis. Sterile gel and sterile p robe cover were utilized for ultrasound guidance. The skin and subcutaneous tissues were infiltrated with local anesthetic solution. With ultrasound and fluoroscopic guidance the selected artery was punctured and a vascular sheath was placed. Angiography of the common femoral artery was performed for evaluation prior to percutaneous closure device placement. Through the 4 Mal[place]ian sheath, a 4 [place]ian hockey-stick catheter was used to select the right we normall y. Contrast injection showed the tip to be in good position in the right renal artery. Hemodynamic me asurements were obtained with a systolic blood pressure of approximately 145 compared to the systemic blood pressure of 165 characteristic of 20 mm gradient. Through the catheter, an 035 Bueno wire was advanced into the renal arch to facilitate placement of a 6 [place] Ansell one catheter. This was posi tioned at the ostium of the renal artery. Contrast injection confirmed a nonostial but central 50% st enosis of the right renal artery. Prominent proximal branch of the renal artery appeared to supply th e right inferior phrenic and possible right adrenal. The 6 x 14 mm Express SD stent was advanced through the sheath and across the stenosis. The stent was deployed with excellent angiographic results confirmed with positive contrast. The proximal end of t he stent was positioned just distal to the takeoff of the inferior phrenic. Hemostasis was obtained with the prescribed medicated closure device. Conscious sedation was perform ed with the prescribed dosages and duration as above in the presence of an independent trained radiol ogy nurse to assist in the monitoring of the patient. EKG and oximetry remained stable throughout th e procedure. CONCLUSION: Successful stenting of an approximate 50% right renal artery nonostial stenosis as above. Star Foster MD on August 27, 2017 at 12:38 Board Certified Radiologist. This report was verified electronically.
[2017-08-27] MEDS ORDERED: CLOPIDOGREL 300 MG TAB PO ONE (15:00)
== END 2017-08-27 15:50 | disposition home or self-care (01) ==
LOC: HROP 08:31 → HRIP 08:31 → HROP 15:50
PROVIDERS: ATTEND Hospitalist
DX: I70.1 Atherosclerosis of renal artery (principal); I10 Essential (primary) hypertension
CPT/HCPCS: 36251; 37236; 76937; 99152; 99153; C1760; C1769; C1876; C1887; C1894; J0690; J1644; J2250; J3010; J7030; Q9967